=== PATIENT | male | born 1970 | race Caucasian/White ===

== ENCOUNTER 2018-05-17 11:49 | Day surgery (SDC) | payer OTHER ==
[~2018-05-17] VITALS: Ht 190.5 cm; Wt 92.5 kg
[~2018-05-17 11:49] MED LIST: ALPR1 PO; ESCI10 PO; HYDACE5325 PO; IBUP800 PO; LORA1 PO; METCAR500 PO; ONDA4 PO; ONDA4ODT MM; Omeprazole20 M1 PO; PRAZ1 PO; PROM25 PO; QUET25 PO; SERT50 PO; SUCR1 PO
--- NOTE | 2018-05-17 12:29 | NUR ---
History, Chart, Medications and Allergies reviewed before start of procedure. Patient States Post-Procedure ride home has been arranged. PT STATES HE DRANK ALL OF HIS PREP BY 1000 THIS AM, STATES LAST TIME HE WENT TO THE BATHROOM, OUTPUT WAS WATERY BUT "A LITTLE BROWN, BUT CAN SEE THROUGH TO THE BOTTOM OF THE TOILET"
--- NOTE | 2018-05-17 13:04 | NUR ---
05/17/18 1304 Errol Headley PATIENT DETERMINED TO BE ASA APPROPRIATE FOR PROPOFOL SEDATION PRIOR TO START OF PROCEDURE BY . 3-LEAD EKG REVIEWED WITH PHYSICIAN PRIOR TO START OF PROCEDURE.History, Chart, Medications and Allergies reviewed before start of procedure.MONITOR INTACT WITH CONTINUOUS PULSE OXIMETRY AND INTERMITTENT BP.O2 VIA N/C INTACT THROUGHOUT SEDATION/PROCEDURE.Bite Block Placed
--- NOTE | 2018-05-17 14:29 | NUR ---
Patient up to Ambulate independently. Gait steady. Discharge instructions reviewed with patient. Patient verbalizes understanding. Copy given to patient to take home. Patient States Post-Procedure ride home has been arranged. Discharged via wheelchair to private car for ride home.
== END 2018-05-17 14:23 | disposition home or self-care (01) ==
LOC: ORSCMMR 11:49 → ORD 15:15 → ORSCMMR 15:15
PROVIDERS: Internal Medicine Gastroenterology
PROC: 0DBE8ZX Excision of Large Intestine, Via Natural or Artificial Opening Endoscopic, Diagnostic (ICD-10-PCS; principal; 2018-05-17 13:15)
PROC: 0DB58ZX Excision of Esophagus, Via Natural or Artificial Opening Endoscopic, Diagnostic (ICD-10-PCS; principal; 2018-05-17 13:15)
PROC: 0DB68ZX Excision of Stomach, Via Natural or Artificial Opening Endoscopic, Diagnostic (ICD-10-PCS; principal; 2018-05-17 13:15)
PROC: 0DB98ZX Excision of Duodenum, Via Natural or Artificial Opening Endoscopic, Diagnostic (ICD-10-PCS; principal; 2018-05-17 13:15)
DX: R19.7 Diarrhea, unspecified (principal); R10.84 Generalized abdominal pain; R11.2 Nausea with vomiting, unspecified; K29.70 Gastritis, unspecified, without bleeding; B96.81 Helicobacter pylori [H. pylori] as the cause of diseases classified elsewhere; K64.8 Other hemorrhoids; K20.9 Esophagitis, unspecified; K29.80 Duodenitis without bleeding; K57.10 Diverticulosis of small intestine without perforation or abscess without bleeding; E78.5 Hyperlipidemia, unspecified; F43.10 Post-traumatic stress disorder, unspecified; F17.220 Nicotine dependence, chewing tobacco, uncomplicated; F41.9 Anxiety disorder, unspecified; Z79.899 Other long term (current) drug therapy
CPT/HCPCS: 88305; 88342; J2250; J7120

== ENCOUNTER → 2018-06-30 | Outpatient (CLI) | payer OTHER | END | disposition home or self-care (01) | LOC: LAB EV 10:40 → LAB SHORT 10:40 | DX: Z09 Encounter for follow-up examination after completed treatment for conditions other than malignant neoplasm (principal); Z86.19 Personal history of other infectious and parasitic diseases | CPT/HCPCS: 87338 ==

== ENCOUNTER 2018-10-30 10:00 | Day surgery (SDC) | payer OTHER ==
[~2018-10-30] VITALS: Ht 190.5 cm; Wt 84.8 kg
[2018-10-30] MEDS ORDERED: OXYC5 PO (10:54)
[2018-10-30] MEDS ORDERED: GABA300 PO (10:55)
--- NOTE | 2018-10-30 11:28 | NUR ---
10/30/18 1128 Lexi Delgado WARM BLANKET GIVEN TO PT. PT RESTING COMF IN ROOM
--- NOTE | 2018-10-30 15:47 | NUR ---
10/30/18 1546 Daren Stroud NOTICED PATIENT BLEEDING THROUGH LATERAL SIDE OF DRESSING AND INFORMED DR KESSLER. DR KESSLER INSTRUCTED TO REINFORCE WITH ABD GAUZE AND AN SIMONE WRAP & MAKE IT TIGHT. NO ADDITIONAL ORDERS OR DIRECTIONS FROM DR KESSLER AT THIS TIME.
== END 2018-10-30 15:30 | disposition home or self-care (01) ==
LOC: ORSCSDS 10:00
PROVIDERS: Podiatrist Foot & Ankle Surgery
PROC: 0QSL04Z Reposition Right Tarsal with Internal Fixation Device, Open Approach (ICD-10-PCS; principal; 2018-10-30 12:30)
DX: S92.011A Displaced fracture of body of right calcaneus, initial encounter for closed fracture (principal); K21.9 Gastro-esophageal reflux disease without esophagitis; Z79.899 Other long term (current) drug therapy
CPT/HCPCS: C1713; J0461; J0690; J1885; J2250; J2704; J3010; J7120

== ENCOUNTER 2022-11-16 10:05 | Emergency (ER) | payer MEDICARE, OTHER ==
[~2022-11-16] VITALS: Ht 193 cm; Wt 93.0 kg
[~2022-11-16 10:05] MED LIST changes: +GABA300 PO; +OXYC5 PO
[2022-11-16] MEDS ORDERED: HYDACE10B PO (11:55)
[2022-11-16] MEDS ORDERED: LAMICTAL200 MG PO (12:23)
[2022-11-16 12:46] VITALS: BP 137/87
== END 2022-11-16 12:43 | disposition home or self-care (01) ==
LOC: ER 10:05
DX: S52.614A Nondisplaced fracture of right ulna styloid process, initial encounter for closed fracture (principal); S52.501A Unspecified fracture of the lower end of right radius, initial encounter for closed fracture; S16.1XXA Strain of muscle, fascia and tendon at neck level, initial encounter; S20.211A Contusion of right front wall of thorax, initial encounter; S00.01XA Abrasion of scalp, initial encounter; S00.81XA Abrasion of other part of head, initial encounter; W17.89XA Other fall from one level to another, initial encounter; Z79.899 Other long term (current) drug therapy
CPT/HCPCS: 70450; 71260; 72125; 73000; 73110; J1170; J2270; J2405; Q9967

== ENCOUNTER 2022-11-19 13:30 | Day surgery (SDC) | payer MEDICARE, OTHER ==
[2022-11-19] VITALS (14 sets, daily range): BP systolic 124–164; BP diastolic 93–108
[~2022-11-19] VITALS: Ht 193 cm; Wt 90.3 kg
[~2022-11-19 13:30] MED LIST changes: +HYDACE10B PO; +LAMICTAL200 MG PO
--- NOTE | 2022-11-19 14:47 | NUR ---
Ambulatory in Day Surgery. History, Chart, Medications and Allergies reviewed before start of procedure. Lungs clear T/O to Auscultation. Patient confirms NPO status and agrees with scheduled surgery. Pre-Op teaching done. Pt verbalizes understanding. Patient States Post-Procedure ride home has been arranged. PT BELONGINGS PLACED UNDERNEATH GURNEY FOR SAFEKEEPING. PT RING GIVEN TO FOR SAFEKEEPING.
--- NOTE | 2022-11-19 15:56 | NUR ---
11/19/22 1556 AGUSTIN CHICAS AT 1534 DR BOWDEN ADMINISTERED KENALOG 40 MG IM TO LEFT SUBACROMIAL SPACE IN THE OR.
--- NOTE | 2022-11-19 17:45 | NUR ---
INTO STEP. PT A&OX4-REPORTS LEFT SHOULDER PAIN 3/10 & RIGHT WRIST INCISIONAL DISCOMFORT-MILD. AQUACEL DRESSING INTACT TO RIGHT WRIST AND BRACE IN PLACE.PT HAS GOOD CIRCULATION AND NO CHANGE IN SENSATION.PT GIVEN CRACKERS, WATER, AND JELLO-TOLERATED WELL. MEDICATED WITH OXYCODONE 5 MG PO FOR PAIN. PT STATES "I'M READY TO GO."
--- NOTE | 2022-11-19 18:15 | NUR ---
Patient up to Ambulate independently. Gait steady. Discharge instructions reviewed with patient. Patient verbalizes understanding. Copy given to patient to take home.
== END 2022-11-19 18:15 | disposition home or self-care (01) ==
LOC: ORSCMMR 13:30
PROVIDERS: Orthopaedic Surgery
PROC: 0PSH04Z Reposition Right Radius with Internal Fixation Device, Open Approach (ICD-10-PCS; principal; 2022-11-19 15:00)
PROC: 0R9K3ZZ Drainage of Left Shoulder Joint, Percutaneous Approach (ICD-10-PCS; principal; 2022-11-19 15:00)
DX: S52.551A Other extraarticular fracture of lower end of right radius, initial encounter for closed fracture (principal); M75.102 Unspecified rotator cuff tear or rupture of left shoulder, not specified as traumatic; W18.30XA Fall on same level, unspecified, initial encounter; F41.9 Anxiety disorder, unspecified; F32.A Depression, unspecified; F17.220 Nicotine dependence, chewing tobacco, uncomplicated; Z79.899 Other long term (current) drug therapy
CPT/HCPCS: A9270; C1713; J0690; J1100; J1170; J1885; J2371; J2405; J2704; J3010; J3301; J7120